=== PATIENT | female | born 1970 | race Caucasian/White ===

== ENCOUNTER 2019-05-04 10:43 | Outpatient (CLI) | payer MEDICAID, SELFPAY ==
--- NOTE | 2019-05-04 10:39 | DI.RAD_ITS ---
EXAM: XR CHEST 2V PA LATERAL CLINICAL HISTORY: syncope and collapse, R55. TECHNIQUE: 2D digital imaging was performed. COMPARISON: No exams were available for comparison FINDINGS: LUNGS: Clear. No pleural abnormality seen. HEART: Normal. MEDIASTINUM: Normal. OTHER FINDINGS:Normal. BONE:Normal. IMPRESSION: No acute pulmonary findings.
[2019-05-04 11:05] LABS: HCT 42.4 % (36.0-46.0); HGB 14.1 g/dL (12.0-15.5); Mean Corp. HGB Concentration 33.3 g/dL (32.0-36.0); Mean Corpuscular Hemoglobin 31.8 pg (27.0-33.0); Mean Corpuscular Volume 95.7 fL (80-95); Mean Platelet Volume 10.2 fL (8.0-11.0); Platelet Count 281 x1000/uL (130-400); RBC 4.43 m/cumm (4.00-5.20); White Blood Cell Count 8.41 k/cumm (4.4-10.8)
[2019-05-04 12:18] LABS: ALT 14 U/L (14-59); AST 13 U/L (15-37); Albumin 3.5 g/dL (3.4-5.0); Alkaline Phosphatase 120 U/L (46-116); Anion Gap 10.6 mmol/L (3-11); BUN 12 mg/dL (7-18); Bilirubin, Total 0.6 mg/dL (0.2-1.0); CO2 27.4 mmol/L (21.0-32.0); Calcium 9.1 mg/dL (8.5-10.1); Calculated LDL 198 mg/dL; Chloride 103 mmol/L (98-107); Cholesterol 268 mg/dL (<200); Glucose 92 mg/dL (74-106); HDL Cholesterol 39 mg/dL (40-60); Potassium 3.8 mmol/L (3.5-5.1); Sodium 141 mmol/L (136-145); TSH 1.28 uIU/mL (0.36-3.74); Total Protein 7.1 g/dL (6.4-8.2); Triglyceride 155 mg/dL (<150)
== END 2019-05-04 11:03 ==
PROVIDERS: PCP Emergency Medicine; Visit Provider Emergency Medicine
DX: R55 Syncope and collapse (principal); E03.9 Hypothyroidism, unspecified
CPT/HCPCS: 36415; 80053; 80061; 85027; 71046; 84443

== ENCOUNTER 2019-05-11 00:24 | Outpatient (CLI) | payer MEDICAID, SELFPAY ==
--- NOTE | 2019-05-11 11:51 | DI.NM_ITS ---
APPROVED REPORT Exam: Exercise Treadmill Patient Location: Out-Patient Room/Bed: Stress Nurse: Dori Coates RN BMI: 24.74 Baseline Rhythm: Sinus Bradycardia Indications: Patient reports episodes of ???Dizziness, lightheadedness, palpitations, and heart racin g??? with occasional falls (3 total) from listed symptoms. She states during these episodes her body feels ???weak and numb???. These symptoms come on without warning and with no relation to rest or act ivity, will last from 20 to 30 minutes, then go away on its own. Medical History Medical History: Brother at age 25 of an DC. Cardiac Medications: Rosuvastatin Allergies: Simvastatin, Ketorlac, Shellfish, Tramadol, Pravastatin, Trazodone Codeine, Lactose. Cardiac Risk Factors: FHX of CAD, Hyperlipidemia, Smoking Previous Cardiac Procedures: None Pretest Chest Pain Characteristics: None Exercise History: Sedentary Physical Disabilities: None Lung Sounds: Clear to auscultation Heart Sounds: Regular Stress Test Details Test: Exercise stress testing was performed using a Zeke protocol. Rest Isotope: Tc-99m Sestamibi. Dose: 10.5 Date: 05/11/2019 Injection Time: 1030 Stress Isotope: Tc-99m Sestamibi. Dose: 31.8 Date: 05/11/2019 Injection Time: 1215 HR Max Heart Rate (APMHR): 170 bpm Resting HR Supine: 52 bpm Target HR (85% APMHR): 144 bpm Resting HR Standin bpm Max HR Achieved: 150 bpm % of APMHR: 88 HR response to stress: Normal HR response to stress BP Resting BP Supine: 118/70 mmHg Resting BP Standin/70 mmHg Max BP: 140/72 mmHg BP response to stress: Normal blood pressure response to stress. ECG Resting ECG: Sinus Bradycardia ST Change: Early repolarization Stress ECG: Sinus Tachycardia ST Change: Normal Arrhythmia: None Recovery ECG: Sinus Rhythm Recovery ST Change: Normal Recovery Arrhythmia: None Clinical Reason for Termination: Dizziness Stress Symptoms: Dizziness Exercise duration: 5 min6 sec Highest Stage Achieved: Stage 2: 2.5 mph at 12% grade. Exercise capacity: 7.05 METs Functional Capacity: Mildly deminished capacity Stress ECG Conclusion 1. Patient exercised for 5 minutes (7 METS). Exercise was terminated due to dizziness. 2. The patient reached target heart rate. Rate-pressure product was 21,000. 3. There was no evidence of ischemia on the ECG portion of this exam. Protocol Used: Zeke Protocol Stress Test Summary STAGE Time (mins) Speed (mph) Grade (%) HR BP SYMPTOMS METS Supine 52 118/70 Standing 68 120/70 1 3 1.7 10 132 140/72 4.6 2 6 2.5 12 7 3 9 3.4 14 10.2 4 12 4.2 16 12.9 5 15 5.0 18 17.2 1 min recovery 150 140/60 3 min recovery 105 122/76 6 min recovery 81 110/60 MPI Conclusion The patient's ejection fraction was 68% with stress. There was no wall motion abnormality. There is no evidence of ischemia on the imaging portion of this exam This represents a normal SPECT stress test. Radiologist Interpretation Radiologist Interpretation by: Sawyer Olson MD Interpretation Date/Time: 05/12/2019 15:18:49
== END 2019-05-11 00:44 ==
PROVIDERS: PCP Emergency Medicine; Visit Provider Emergency Medicine
DX: I25.10 Atherosclerotic heart disease of native coronary artery without angina pectoris (principal); R00.2 Palpitations; R42 Dizziness and giddiness; E78.5 Hyperlipidemia, unspecified; Z82.49 Family history of ischemic heart disease and other diseases of the circulatory system
CPT/HCPCS: 78452; 93017

== ENCOUNTER 2019-10-12 01:29 | Outpatient (CLI) | payer MEDICAID, SELFPAY ==
--- NOTE | 2019-11-03 12:29 | ZIOP_ITS ---
Date of service: 11/03/19 Time of Service: 12:29 ZIO Patch [employer] Leader Note: This was a 14-day ZIO patch performed for indications of syncope The rhythm throughout was sinus. Average heart rate was 78 bpm. Minimum heart rate was 43 and maximum 155. There were rare atrial premature beats, rare ventricular premature beats There was no bradycardia. There were no pauses greater than 2 seconds Patient symptoms of dizziness, lightheadedness corresponded to sinus rhythm and sinus tachycardia
== END 2019-10-12 01:49 ==
PROVIDERS: PCP Emergency Medicine; Visit Provider Emergency Medicine
DX: R55 Syncope and collapse (principal); I49.1 Atrial premature depolarization
CPT/HCPCS: 0296T

== ENCOUNTER 2020-06-01 02:52 | Outpatient (CLI) | payer MEDICAID, SELFPAY ==
[2020-06-01 12:29] LABS: C-Reactive Protein 0.35 mg/dL (0.0-0.3); TSH 1.43 uIU/mL (0.36-3.74)
[2020-06-01 19:02] LABS: Calculated LDL 125 mg/dL (<100); Cholesterol 189 mg/dL (<200); HDL Cholesterol 47 mg/dL (40-60); Triglyceride 86 mg/dL (<150)
== END 2020-06-01 02:53 | disposition home or self-care (01) ==
LOC: LBO 02:53
PROVIDERS: PCP Emergency Medicine; Visit Provider Emergency Medicine
DX: E78.5 Hyperlipidemia, unspecified (principal); E03.9 Hypothyroidism, unspecified; R55 Syncope and collapse
CPT/HCPCS: 36415; 80061; 84443; 86140

== ENCOUNTER 2022-12-03 16:22 | Outpatient (REF) | payer MEDICAID, SELFPAY ==
[2022-12-03 22:04] LABS: ALT 15 U/L (14-59); AST 21 U/L (15-37); Albumin 3.7 g/dL (3.4-5.0); Alkaline Phosphatase 108 U/L (46-116); Anion Gap 12.1 mmol/L (3-11); BUN 13 mg/dL (7-18); Bilirubin, Total 0.5 mg/dL (0.2-1.0); CO2 23.9 mmol/L (21.0-32.0); CREATININE 0.8 mg/dL (0.55-1.02); Calcium 9.2 mg/dL (8.5-10.1); Calculated LDL 265 mg/dL (<100); Chloride 106 mmol/L (98-107); Cholesterol 330 mg/dL (<200); Estimated GFR 88.05 (mL/min/1.73m2); Glucose 98 mg/dL (74-106); HDL Cholesterol 46 mg/dL (40-60); Potassium 4.2 mmol/L (3.5-5.1); Sodium 142 mmol/L (136-145); Total Protein 7.9 g/dL (6.4-8.2); Triglyceride 96 mg/dL (<150)
[2022-12-05 09:46] LABS: Hepatitis C Ab w Rflx HCV PCR Negative (Negative)
[2022-12-05 10:18] LABS: HIV-1/2 Ag & Ab Screen Negative (Negative)
== END 2022-12-03 16:23 | disposition home or self-care (01) ==
LOC: NCHCN 16:22
PROVIDERS: Visit Provider Nurse Practitioner Family
DX: E78.5 Hyperlipidemia, unspecified (principal); N28.9 Disorder of kidney and ureter, unspecified; Z11.4 Encounter for screening for human immunodeficiency virus [HIV]; Z11.59 Encounter for screening for other viral diseases; Z79.899 Other long term (current) drug therapy
CPT/HCPCS: 80053; 80061; 86803; 87389

== ENCOUNTER 2024-11-18 11:14 | Outpatient (REF) | payer MEDICAID, SELFPAY ==
[2024-11-18 15:22] LABS: HCT 42.1 % (36.0-46.0); HGB 14.0 g/dL (11.2-15.7); MCH 31.9 pg (27.0-33.0); MCHC 33.3 % (32.0-36.0); MCV 96 fL (80-95); MPV 10.7 fL (8.0-11.0); Platelet Count 286 10^3/uL (130-400); RBC 4.39 10^6/uL (3.93-5.22); RDW 12.5 % (11.7-14.6); RDW-SD 44.5 fL; WBC 7.96 10^3/uL (4.4-10.8)
[2024-11-18 15:40] LABS: Hemoglobin A1C 5.5 % (<5.7)
[2024-11-18 15:45] LABS: ALT 31 U/L (14-59); AST 32 U/L (15-37); Albumin 3.8 g/dL (3.4-5.0); Alkaline Phosphatase 96 U/L (46-116); Anion Gap 6.4 mmol/L (3-11); BUN 12 mg/dL (7-18); Bilirubin, Total 0.5 mg/dL (0.2-1.0); CO2 28.6 mmol/L (21.0-32.0); Calcium 9.5 mg/dL (8.5-10.1); Calculated LDL 138 mg/dL (<100); Chloride 106 mmol/L (98-107); Cholesterol 229 mg/dL (<200); Estimated GFR 102.07 (mL/min/1.73m2); Glucose 99 mg/dL (74-106); HDL Cholesterol 70 mg/dL (>or=50); Potassium 4.8 mmol/L (3.5-5.1); Sodium 141 mmol/L (136-145); Total Protein 8.0 g/dL (6.4-8.2); Triglyceride 105 mg/dL (<150)
== END 2024-11-18 11:15 | disposition home or self-care (01) ==
LOC: NCHCN 11:14
PROVIDERS: Visit Provider Nurse Practitioner Family
DX: E78.5 Hyperlipidemia, unspecified (principal); Z13.1 Encounter for screening for diabetes mellitus; I25.10 Atherosclerotic heart disease of native coronary artery without angina pectoris
CPT/HCPCS: 80053; 80061; 85027; 83036